=== PATIENT | female | born 1945 | race Caucasian/White ===

== ENCOUNTER → 2018-05-17 | Outpatient (CLI) | payer MEDICARE, OTHER ==
[~2018-05-17] MED LIST: GADOBUTROL 7.5 MMOL/7.5 ML (GADAVIST) VIAL IV ONE
[2018-05-17 08:40] LABS: BUN/CREATININE RATIO 23; CREATININE SERUM 0.84 MG/DL (0.60-1.30); GFR ESTIMATED > 60
--- NOTE | 2018-05-17 12:30 | Diagnostic Imaging Report ---
PROCEDURE: MR imaging of the brain with and without contrast. TECHNIQUE: Multiplanar, multisequence MR imaging of the brain was performed with and without contrast. INDICATION: Right face, jaw, ear and headache. COMPARISON: No prior examinations are available for comparison. FINDINGS: There is prominence of the ventricles and sulci. There is some mild chronic microvascular ischemic disease. There are no areas of diffusion restriction appreciated to suggest an acute CVA. There is no hydrocephalus. There is no midline shift. There is no intracranial mass, hemorrhage or extra-axial fluid collection. The frontal, ethmoid, sphenoid and maxillary sinuses are clear. Mastoid air cells are clear. The globes and infraorbital structures are unremarkable. Midline structures are unremarkable. There are no abnormal areas of contrast enhancement. Specifically there is no abnormal enhancement or mass within either internal auditory canal. The central arterial and dural venous sinus flow voids are preserved. IMPRESSION: Atrophy and some mild chronic microvascular ischemic disease. Otherwise unremarkable MRI of the brain. Dictated by: Dictated on workstation # [id number]
== END ==
LOC: RAD 08:15
PROVIDERS: ATTEND Otolaryngology Otolaryngology/Facial Plastic Surgery
DX: G31.9 Degenerative disease of nervous system, unspecified (principal); I67.82 Cerebral ischemia; H92.01 Otalgia, right ear
CPT/HCPCS: 36415; 70553; 82565; 84520; 85652

== ENCOUNTER → 2021-01-06 | Outpatient (CLI) | payer MEDICARE, OTHER ==
--- NOTE | 2021-01-06 11:08 | Diagnostic Imaging Report ---
PROCEDURE: MRI lumbar spine. INDICATION: 75-year-old female, chronic low back pain.. TECHNIQUE: Multiplanar and multisequence magnetic resonance imagine was performed of the lumbar spine without contrast. CORRELATION STUDY: None. FINDINGS: S type curvature about the lumbar spine apex to the right superiorly and inferiorly towards the left. Trace anterolisthesis of T12 on L1. No significant loss of height or acute appearing compression deformity. Slight asymmetric irregularity of the endplates, particularly along the left aspect of L2-L3 and central aspect of the L3-L4 and L4-L5 levels. No concerning geographic lesion. The conus appears unremarkable. Limited visualization of the T9-T10 and T10-T11 levels and likely T8-T9 level demonstrate loss of disc space height. Asymmetric disc bulge is noted with slight flattening of the ventral thecal sac, more focal foraminal narrowing on the right. T11-T12: This level is unremarkable. T12-L1: Moderate loss of disc space height. Asymmetric hypertrophic facet arthropathy, left greater than right. Moderate bilateral foraminal narrowing. AP dimension of canal is narrowed to 9 mm. L1-L2: Moderate loss of disc space height. Broad-based disc bulge. Ligament and facet hypertrophy, left greater than right, results in moderate trefoil type spinal canal narrowing. Prominent asymmetric left and to a lesser degree right foraminal narrowing. L2-L3: Marked loss of disc space height. Rather prominent ligament and facet hypertrophy results in moderate trefoil type spinal canal narrowing. Disc/osteophyte formation results in asymmetric rather significant bilateral foraminal narrowing, left slightly greater than right. L3-L4: Moderate to marked loss of disc space height. Rather prominent ligamentum and facet hypertrophy, right greater than left. Degenerative disc disease with prominent disc and osteophyte formation results in significant bilateral foraminal narrowing. L4-L5: Marked loss of disc space height with ligament and facet hypertrophy. Rather pronounced spinal canal stenosis with significant effacement of the thecal sac. Marked bilateral foraminal narrowing owing to disc and osteophyte formation with near complete effacement of the foramina, right greater than left. L5-S1: Slight loss of height and signal intensity. There is, however, prominent disc and osteophyte formation resulting in significant bilateral foraminal narrowing. There is also prominent circumferential narrowing of the spinal canal owing to ligamentum and facet hypertrophy. The visualized portions of the abdominal aorta and kidneys are negative. No pathologically enlarged central retroperitoneal lymph nodes. IMPRESSION: 1. Rather significant areas of spinal canal and foraminal narrowing owing to rather pronounced ligamentum and facet hypertrophy along with degenerative disc disease and reactive endplate osteophyte formation. Spinal canal stenosis is most severe at the L4-L5 level but is also present at multiple additional levels. Extensive areas of foraminal narrowing are present. Findings are accentuated by the S-type scoliotic curvature of the lumbar spine. 2. Additional areas of degenerative disc disease and disc bulge of the lower thoracic spine partially evaluated and visualized. Dictated by: Dictated on workstation # [id number]
== END ==
LOC: RAD 08:00
PROVIDERS: ATTEND Family Medicine
DX: M47.26 Other spondylosis with radiculopathy, lumbar region (principal); M51.16 Intervertebral disc disorders with radiculopathy, lumbar region; M48.061 Spinal stenosis, lumbar region without neurogenic claudication
CPT/HCPCS: 72148

== ENCOUNTER → 2021-01-18 | Outpatient (CLI) | payer MEDICARE, OTHER | LOC: CARD 09:30 | PROVIDERS: ATTEND Internal Medicine Cardiovascular Disease | DX: I36.1 Nonrheumatic tricuspid (valve) insufficiency (principal); I10 Essential (primary) hypertension; I25.10 Atherosclerotic heart disease of native coronary artery without angina pectoris | CPT/HCPCS: 93306 ==

== ENCOUNTER → 2021-03-08 | Outpatient (CLI) | payer MEDICARE, OTHER ==
[~2021-03-08] VITALS: Ht 147 cm; Wt 55.0 kg
[~2021-03-08] MED LIST changes: -GADOBUTROL 7.5 MMOL/7.5 ML (GADAVIST) VIAL IV ONE; +REGADENOSON 0.4 MG/5 ML SYR (LEXISCAN) IV ONE
[2021-03-08] MEDS: CATHETER FLUSH 10 ML SYR IV PRN ×2 (08:01→09:45)
[2021-03-08 09:43] VITALS: BP 140/72
--- NOTE | 2021-03-08 11:26 | Cardiology Stress Test Report ---
Stress Test Report Date of Procedure/Referring: Date of Procedure: Mar 08, 2021 PCP Nicolle Chamberlain MD Admitting Physician Quinn Cruz MD Indications: CP Baseline Heart Rate: 67 Baseline Blood Pressure: Blood Pressure Systolic: 140 Blood Pressure Diastolic: 72 Baseline Vitals Vital Signs Date Time Temp Pulse Resp B/P (MAP) Pulse Ox O2 Delivery O2 Flow Rate FiO2 03/08/21 09:43 68 140/72 (94) 93 Room Air Baseline EKG: Baseline EKG: NSR Summary After explaining the procedure to the patient, she signed a consent and then brought to the stress nuclear laboratory. Patient received 0.4 mg Lexiscan for stress test, ECG, heart rate and blood pressure were monitored continuously. Resting and stress dose of radio tracer were injected, imaging was acquired and reviewed in short axis, horizontal long axis and vertical long axis views. TID: 1.07 SSS: 1 SDS: 1 EF: 77 1. Patient tolerated Lexiscan well 2. No significant ischemia or infarction on SPECT images 3. Normal left ventricular size, EF 77% NICOLLE CHAMBERLAIN MD Mar 08, 2021 11:26
== END ==
LOC: CARD 08:30
PROVIDERS: ATTEND Internal Medicine Cardiovascular Disease
DX: I25.10 Atherosclerotic heart disease of native coronary artery without angina pectoris (principal); I10 Essential (primary) hypertension
CPT/HCPCS: 78452; 93017; A9502